=== PATIENT | male | born 1950 | race Caucasian/White ===

== ENCOUNTER 2021-01-17 05:25 | Emergency (ER) | payer MEDICARE, OTHER ==
[2021-01-17 05:37] VITALS: BP 137/86; PULSE 58; RESP 16; TEMP 97.8
--- NOTE | 2021-01-17 05:38 | ED ---
Recheck HPI - General Chief Complaint: Recheck/Abnormal Lab/Rx Stated Complaint: Covid Test Time Seen by Provider: 01/17/21 05:29 Source: patient, RN notes reviewed, old records reviewed Mode of arrival: ambulatory Limitations: no limitations - History of Present Illness Initial Comments: This is a 70-year-old male presenting to the emergency department today for evaluation of coronavirus. Ration presents significant for coronavirus testing if his medications no complaints states he has had 2 tests do not the current tests that he continues to get back to [facility] Complaint: other (Patient here for coronavirus testing) -: unknown Returns Today for: other (none) Symptoms Since Prior Visit: no new symptoms Associated Symptoms: none Treatments Prior to Arrival: other (none) - Related Data Allergies Allergy/AdvReac Type Severity Reaction Status Date / Time No Known Allergies Allergy Verified 01/17/21 05:31 Review of Systems ROS Statement: Those systems with pertinent positive or pertinent negative responses have been documented in the HPI. ROS Other: All systems not noted in ROS Statement are negative. Past Medical History Past Medical History: No Reported History History of Any Multi-Drug Resistant Organisms: None Reported Past Surgical History: Hernia Repair Past Psychological History: No Psychological Hx Reported Smoking Status: Light tobacco smoker Past Alcohol Use History: None Reported Past Drug Use History: None Reported General Exam Limitations: no limitations General appearance: alert, in no apparent distress Head exam: Present: atraumatic, normocephalic, normal inspection Eye exam: Present: normal appearance. Absent: scleral icterus, conjunctival injection, periorbital swelling ENT exam: Present: normal exam, mucous membranes moist Neck exam: Present: normal inspection. Absent: tenderness, meningismus, lymphadenopathy Respiratory exam: Present: normal lung sounds bilaterally Cardiovascular Exam: Present: regular rate, normal rhythm Extremities exam: Present: normal inspection, full ROM Back exam: Present: normal inspection Neurological exam: Present: alert, oriented X3, CN II-XII intact Psychiatric exam: Present: normal affect, normal mood Skin exam: Present: warm, dry, intact, normal color Course Vital Signs 01/17/21 05:36 Temperature 97.8 F Pulse Rate 58 L Respiratory 16 Rate Blood Pressure 137/86 O2 Sat by Pulse 93 L Oximetry - Reevaluation(s) Reevaluation #1: 01/17/21 05:57 Medical record is reviewed Reevaluation #2: 01/17/21 05:57 Patient is informed of test results Medical Decision Making - Medical Decision Making 70 male to the emergency department for coronavirus test. Patient is a symptomatically has no complaints Disposition Clinical Impression: COVID-19 ruled out by laboratory testing, Normal exam Disposition: HOME SELF-CARE Condition: Good Instructions (If sedation given, give patient instructions): Coronavirus Disease 2019 (COVID-19), Normal Exam (ED) Is patient prescribed a controlled substance at d/c from ED?: No Referrals: Nonstaff,Physician [Primary Care Provider] - 1-2 days
== END 2021-01-17 07:16 | disposition home or self-care (01) ==
LOC: EC 05:25
DX: Z20.822 Contact with and (suspected) exposure to COVID-19 (principal); F17.290 Nicotine dependence, other tobacco product, uncomplicated
CPT/HCPCS: 87635; 99282